=== PATIENT | female | born 1980 | race Caucasian/White ===

== ENCOUNTER 2018-03-05 18:06 | Emergency (ER) | payer BC, OTHER ==
[2018-03-05 18:16] VITALS: BP 124/94
[2018-03-05] MEDS ORDERED: Amoxicillin PO (*) 500 MG CAP PO ONE ×2 (18:26)
--- NOTE | 2018-03-05 18:44 | UC ---
UC Dental HPI - HPI Summary HPI Summary: right upper and left lower molar extracted 02/28/18---now has increased pain and swelling right upper jaw - History of Current Complaint Chief Complaint: UCDentalProblem Stated Complaint: DENTAL COMPLAINT Time Seen by Provider: 03/05/18 18:22 Hx Obtained From: Patient Hx Last Menstrual Period: unknown ?: No Onset/Duration: Sudden Onset Pain Intensity: 3 Pain Scale Used: 0-10 Numeric Aggravating Factor(s): Chewing Alleviating Factor(s): OTC Meds Related History: Previous Dental Care on Same Tooth, Swelling - Allergies/Home Medications Allergies/Adverse Reactions: Allergies Allergy/AdvReac Type Severity Reaction Status Date / Time No Known Allergies Allergy Verified 03/05/18 18:16 PMH/Surg Hx/FS Hx/Imm Hx Previously Healthy: Yes - Surgical History Surgical History: Yes Surgery Procedure, Year, and Place: c section; tubes tied - Family History Known Family History: Positive: Cardiac Disease - [place] - father, Diabetes - mother - Type I DM - Social History Occupation: Employed Full-time Lives: With Family Alcohol Use: Weekly Alcohol Amount: 6-12/WEEK Substance Use Type: None Smoking Status (MU): Light Every Day Tobacco Smoker Amount Used/How Often: 1/2 PPD Review of Systems All Other Systems Reviewed And Are Negative: Yes Constitutional: Positive: Negative Skin: Positive: Negative Eyes: Positive: Negative ENT: Positive: Dental Pain - right posterior upper jaw Respiratory: Positive: Negative Cardiovascular: Positive: Negative Gastrointestinal: Positive: Negative Genitourinary: Positive: Negative Motor: Positive: Negative Neurovascular: Positive: Negative Musculoskeletal: Positive: Negative Neurological: Positive: Negative Psychological: Positive: Negative Is Patient Immunocompromised?: No Physical Exam Triage Information Reviewed: Yes Appearance: Well-Appearing, No Pain Distress, Well-Nourished Vital Signs: Initial Vital Signs Temp 98.2 F 03/05/18 18:10 Pulse 70 03/05/18 18:10 Resp 16 03/05/18 18:10 BP 124/94 03/05/18 18:10 Pulse Ox 100 03/05/18 18:10 Vital Signs Reviewed: Yes Eye Exam: Normal Eyes: Positive: Conjunctiva Clear ENT Exam: Normal ENT: Positive: Normal ENT inspection, Hearing grossly normal, Pharynx normal, Dental tenderness, Uvula midline. Negative: Nasal congestion, Trismus, Muffled voice, Hoarse voice, Sinus tenderness Dental Exam: Other Dental: Positive: Abscess @ - right upper at molar extraction site Neck exam: Normal Neck: Positive: Supple, Nontender, No Lymphadenopathy Respiratory Exam: Normal Respiratory: Positive: Chest non-tender, No respiratory distress, No accessory muscle use Cardiovascular Exam: Normal Cardiovascular: Positive: Pulses Normal, Brisk Capillary Refill Musculoskeletal Exam: Normal Musculoskeletal: Positive: Strength Intact, ROM Intact, No Edema Neurological Exam: Normal Neurological: Positive: Alert, Muscle Tone Normal Psychological Exam: Normal Skin Exam: Normal Dental Complaint Course/Dx - Course Course Of Treatment: continue ibuprofen, add amoxicillin, follow with dentist as needed - Differential Dx/Diagnosis Provider Diagnosis: Abscess, dental Discharge - Sign-Out/Discharge Documenting (check all that apply): Patient Departure All imaging exams completed and their final reports reviewed: No Studies - Discharge Plan Condition: Stable Disposition: HOME Prescriptions: Amoxicillin PO (*) [Amoxicillin 500 MG CAP*] 500 mg PO TID #28 cap Patient Education Materials: Dental Abscess (ED) Referrals: Donald Hancock MD [Primary Care Provider] - If Needed - Billing Disposition and Condition Condition: STABLE Disposition: Home
== END 2018-03-05 18:39 | disposition home or self-care (01) ==
LOC: UCEAST 18:06
DX: K04.7 Periapical abscess without sinus (principal); F17.210 Nicotine dependence, cigarettes, uncomplicated
CPT/HCPCS: 99212; A9270-GY; G0463

== ENCOUNTER 2019-04-03 09:29 | Emergency (ER) | payer OTHER ==
--- OUTSIDE RECORDS SUMMARY | 2019-04-03 09:38 | XMS REPORT | Continuity of Care Document ---
:1980 External Reference #:[id number] Author Name Sukumar Car MD Address [address] [place] [address] Care Team Providers Name Role Phone Donald Hancock MD Care Team Information Window Maker [phone] Problems Active Problems Provider Date Cervicovaginal cytology: Low grade squamous Sukumar Car MD Onset: 2018 intraepithelial lesion Social History Type Date Description Comments Sex Unknown Cigarette Use Current Cigarette Smoker 1/2 Pack Daily ETOH Use Occasionally consumes alcohol Tobacco Use Start: Unknown Patient is a current smoker, smokes every day Recreational Drug Use Denies Drug Use Smoking Status Reviewed: 02/15/19 Patient is a current smoker, smokes every day Exercise Type/Frequency Exercises regularly Seat Belt/Car Seat Always uses seat belt Allergies, Adverse Reactions, Alerts Description No Known Drug Allergies Medications Description No Active Medications Immunizations Description No Information Available Vital Signs Date Vital Result Comment 02/15/2019 1:47pm BP Systolic 112 mmHg BP Diastolic 72 mmHg Height 62.5 inches 5'2.50" Weight 167.00 lb BMI (Body Mass Index) 30.1 kg/m2 2 Parity 2 04/12/2017 1:25pm BP Systolic 118 mmHg BP Diastolic 74 mmHg Height 62.5 inches 5'2.50" Weight 158.00 lb BMI (Body Mass Index) 28.4 kg/m2 Last Menstrual Period [id number] 2 Parity 2 Results Description No Information Available Procedures Date Code Description Status 02/15/2019 75396 Colposcopy W/Loop Electrode Conization Of The Cervix Completed Medical Devices Description No Information Available Encounters Description No Information Available Assessments Date Code Description Provider 02/15/2019 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
--- OUTSIDE RECORDS SUMMARY | 2019-04-03 09:38 | XMS REPORT | Continuity of Care Document ---
:1980 External Reference #:[id number] Author Name Suukmar Car MD Address [address] [place] [address] Care Team Providers Name Role Phone Donald Hancock MD Care Team Information Penal Officer [phone] Problems Active Problems Provider Date Cervicovaginal cytology: Low grade squamous Sukumar Car MD Onset: 2018 intraepithelial lesion Carcinoma in situ of endocervix Sukumar Car MD Onset: 03/13/2019 Social History Type Date Description Comments Sex Unknown Cigarette Use Current Cigarette Smoker 1/2 Pack Daily ETOH Use Occasionally consumes alcohol Tobacco Use Start: Unknown Patient is a current smoker, smokes every day Recreational Drug Use Denies Drug Use Smoking Status Reviewed: 03/13/19 Patient is a current smoker, smokes every day Exercise Type/Frequency Exercises regularly Seat Belt/Car Seat Always uses seat belt Allergies, Adverse Reactions, Alerts Description No Known Drug Allergies Medications Description No Active Medications Immunizations Description No Information Available Vital Signs Date Vital Result Comment 03/13/2019 9:28am BP Systolic 118 mmHg BP Diastolic 78 mmHg Height 62.5 inches 5'2.50" Weight 168.00 lb BMI (Body Mass Index) 30.2 kg/m2 2 Parity 2 02/15/2019 1:47pm BP Systolic 112 mmHg BP Diastolic 72 mmHg Height 62.5 inches 5'2.50" Weight 167.00 lb BMI (Body Mass Index) 30.1 kg/m2 2 Parity 2 Results Test Acquired Date Facility Test Result H/L Range Note Surgical 02/15/2019 [facility] Surgical SEE RESULT 1, 2 [place] [address] Pathology BELOW [phone] [facility] SEE IMAGE 1 [id number] 2 SEE RESULT BELOW Name: MAGDALENA HEATON : [address]: Sukumar Car MD Acct: [id number] Unit: [id number] AGE: 38 Location: [facility] Re02/15/19 SEX: F Status: REG REF SPEC: [id number] DARA: 02/15/19- SUBM DR: Sukumar Car MD REQ: [id number] RECD: 02/16/19-1245 STATUS: SHAWNA PERALES DR: Donald Hancock III, MD _ ORDERED: LEVEL 5 COMMENTS: [id number] FINAL DIAGNOSIS Uterus, cervix, loop electrocautery excision procedure: -- 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 -- The endocervical margin is positive. -- All other margins are clear for significant dysplasia. PRE-OPERATIVE DIAGNOSIS JAYNA 3 GROSS DESCRIPTION The specimen is received in formalin labeled, Cervical Biopsy by LEEP, and consists of a 1.7 x 1.5 cm holder-alcaraz ovoid rubbery focally cauterized soft tissue fragment excised to a maximum depth of 0.6 cm consistent with an unoriented cervical LEEP biopsy. The ectocervix is smooth to wrinkled holder-white with a central 0.9 by up to 0.3 cm os. The endocervix is holder-pink. The specimen is inked as follows: ectocervical margin-black and endocervical margin-blue, serially sectioned in a radial fashion and entirely submitted in four cassettes. Signed by and Reported on: Thu Narayanan MD 02/20/19 1444 END OF REPORT DEPARTMENT OF PATHOLOGY, [address] [place] [address] Miky Blood M.D. 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
--- NOTE | 2019-04-03 09:56 | UC ---
Palpitation/Dysrhythmia HP - HPI Summary HPI Summary: 38-year-old woman comes in with a chief complaint of palpitations and lightheadedness. Patient's had palpitations on and off for quite some time. Last night she was having palpitations and when she had the palpitation she felt like she might pass out. No complaint of chest pain. She has felt short of breath with palpitations before. This morning she was having some palpitations and she did feel short of breath. Patient is a smoker. She is not on control pills. No calf pain or swelling. Last evening she briefly had an occipital headache during palpitations. No headache now. - History of Current Complaint Chief Complaint: UCCardiac Stated Complaint: PALPITATIONS Time Seen by Provider: 04/03/19 09:34 Hx Last Menstrual Period: tubal Pain Intensity: 0 - Allergy/Home Medications Allergies/Adverse Reactions: Allergies Allergy/AdvReac Type Severity Reaction Status Date / Time No Known Allergies Allergy Verified 03/05/18 18:16 PMH/Surg Hx/FS Hx/Imm Hx Previously Healthy: Yes - Surgical History Surgical History: Yes Surgery Procedure, Year, and Place: c section; tubes tied - Family History Known Family History: Positive: Cardiac Disease - [place] - father, Diabetes - mother - Type I DM - Social History Alcohol Use: Weekly Alcohol Amount: 6-12/WEEK Substance Use Type: None Smoking Status (MU): Light Every Day Tobacco Smoker Amount Used/How Often: 1/2 PPD Household Exposure Type: Cigarettes Review of Systems All Other Systems Reviewed And Are Negative: Yes Constitutional: Positive: Other - SEE HPI Skin: Positive: Negative Eyes: Positive: Negative ENT: Positive: Negative Respiratory: Positive: Shortness Of Breath Cardiovascular: Positive: Palpitations, Other - SEE HPI Gastrointestinal: Positive: Negative Motor: Positive: Negative Neurovascular: Positive: Negative Musculoskeletal: Positive: Negative Neurological: Positive: Headache Psychological: Positive: Negative Is Patient Immunocompromised?: No Physical Exam Triage Information Reviewed: Yes Appearance: Well-Appearing, No Pain Distress, Well-Nourished Vital Signs: Initial Vital Signs Temp 98.9 F 04/03/19 09:47 Pulse 86 04/03/19 09:47 Resp 16 04/03/19 09:47 BP 127/91 04/03/19 09:47 Pulse Ox 99 04/03/19 09:47 Vital Signs Reviewed: Yes Eye Exam: Normal Eyes: Positive: Conjunctiva Clear Neck: Positive: Supple Respiratory: Positive: Lungs clear, Normal breath sounds, No respiratory distress Cardiovascular: Positive: RRR Musculoskeletal: Positive: Strength Intact, ROM Intact, No Edema - No calf tenderness Neurological: Positive: Alert, Muscle Tone Normal Psychological: Positive: Age Appropriate Behavior Skin Exam: Normal Diagnostics - EKG Cardiac Rate: NL - AT 09:37 Cardiac Rhythm: Sinus: Normal - 78BPM Ectopy: None ST Segment: Normal Palpitations Course/Dx - Course Course Of Treatment: I discussed the EKG with the patient. At this time the patient's asymptomatic. Because the palpitations were symptomatic last evening and this morning a recommended further evaluation emergency department. Patient prefers to go by POV. - Differential Dx/Diagnosis Provider Diagnosis: Palpitations, Lightheadedness Discharge ED - Sign-Out/Discharge Documenting (check all that apply): Patient Departure All imaging exams completed and their final reports reviewed: No Studies - Discharge Plan Condition: Stable Disposition: HOME-RECOMMEND TO ED Patient Education Materials: Heart Palpitations (ED), Lightheadedness (ED) Referrals: Donald Hancock MD [Primary Care Provider] - Additional Instructions: GO DIRECTLY TO THE EMERGENCY DEPARTMENT FOR FURTHER EVALUATION. - Billing Disposition and Condition Condition: STABLE Disposition: Home-Recommend to ED
[2019-04-03 10:01] VITALS: BP 127/91
== END 2019-04-03 10:04 | disposition home health service (06) ==
LOC: UCEAST 09:29
DX: R00.2 Palpitations (principal); R42 Dizziness and giddiness; R51 Headache; R06.02 Shortness of breath; F17.210 Nicotine dependence, cigarettes, uncomplicated
CPT/HCPCS: 93005; 99212; G0463

== ENCOUNTER 2019-04-03 10:52 | Emergency (ER) | payer OTHER ==
[2019-04-03 11:39] LABS: ABS Lymphocytes 1.1 10^3/ul (1.0-4.8); ABS Monocytes 0.7 10^3/ul (0-0.8); ABS Neutrophils 7.7 10^3/ul (1.5-7.7); Eosinophil % 0.3 %; Hematocrit 46 % (35-47); Hemoglobin 16.4 g/dL (12.0-16.0); Lymphocyte % 11.6 %; Mean Corpuscular HGB Conc 36 g/dL (31-36); Mean Corpuscular Hemoglobin 35 pg (27-31); Mean Corpuscular Volume 99 fL (80-97); Platelet Count 281 10^3/uL (150-450); Red Blood Count 4.64 10^6 /uL (3.70-4.87); Red Cell Distribution Width 13 % (10-15); White Blood Count 9.6 10^3/uL (3.5-10.8)
[2019-04-03 11:56] LABS: Albumin 4.3 g/dL (3.2-5.2); Albumin/Globulin Ratio 1.4 (1-3); BUN/Creatinine Ratio 8.8 (8-20); EGFR African American 98.2 (>60); EGFR Non-African American 81.2 (>60); Globulin 3.1 g/dL (2-4); Magnesium 2.1 mg/dL (1.9-2.7); Potassium 3.7 mmol/L (3.5-5.0); Total Bilirubin 0.6 mg/dL (0.2-1.0); Total Protein 7.4 g/dL (6.4-8.9)
[2019-04-03 12:12] LABS: TSH (Thyroid Stimulating Horm) 2.59 mcIU/mL (0.34-5.60)
--- NOTE | 2019-04-03 12:15 | ED ---
Palpitations / Dysrhythmia - HPI Summary HPI Summary: This patient is a 38 year old female presenting to [facility] with a chief complaint of palpitations since last night. She states she felt them in bed and felt light headed and anxious. - History of Current Complaint Chief Complaint: EDDysrhythmPalp Time Seen by Provider: 04/03/19 11:55 Hx Obtained From: Patient - Allergy/Home Medications Allergies/Adverse Reactions: Allergies Allergy/AdvReac Type Severity Reaction Status Date / Time No Known Allergies Allergy Verified 03/05/18 18:16 PMH/Surg Hx/FS Hx/Imm Hx Sensory History: Denies: Hx Contacts or Glasses, Hx Hearing Aid Opthamlomology History: Denies: Hx Contacts or Glasses - Surgical History Surgery Procedure, Year, and Place: c section; tubes tied Hx Anesthesia Reactions: No Infectious Disease History: No Infectious Disease History: Denies: History Other Infectious Disease, Traveled Outside the in Last 30 Days - Family History Known Family History: Positive: Cardiac Disease - [place] - father, Diabetes - mother - Type I DM - Social History Alcohol Use: Weekly Alcohol Amount: 6-12/WEEK Substance Use Type: Reports: None Smoking Status (MU): Light Every Day Tobacco Smoker Amount Used/How Often: 1/2 PPD Review of Systems Positive: Palpitations Neurological: Other - Light-headed Positive: Anxious All Other Systems Reviewed And Are Negative: Yes Physical Exam Triage Information Reviewed: Yes Vital Signs On Initial Exam: Initial Vitals Temp Pulse Resp BP Pulse Ox 98.8 F 106 16 160/107 98 04/03/19 11:06 04/03/19 11:06 04/03/19 11:06 04/03/19 11:06 04/03/19 11:06 Vital Signs Reviewed: Yes Procedures - Sedation Patient Received Moderate/Deep Sedation with Procedure: No Diagnostics - Vital Signs Vital Signs Temp Pulse Resp BP Pulse Ox 04/03/19 11:06 98.8 F 106 16 160/107 98 - Laboratory Lab Results: Lab Results 04/03/19 04/03/19 04/03/19 Range/Units 11:22 11:22 11:22 WBC 9.6 (3.5-10.8) 10^3/uL RBC 4.64 (3.70-4.87) 10^6 /uL Hgb 16.4 H (12.0-16.0) g/dL Hct 46 (35-47) % MCV 99 H (80-97) fL MCH 35 H (27-31) pg MCHC 36 (31-36) g/dL RDW 13 (10-15) % Plt Count 281 (150-450) 10^3/uL MPV 8.0 (7.4-10.4) fL Neut % (Auto) 80.2 % Lymph % (Auto) 11.6 % [place] % (Auto) 7.4 % Eos % (Auto) 0.3 % Baso % (Auto) 0.5 % Absolute Neuts (auto) 7.7 (1.5-7.7) 10^3/ul Absolute Lymphs (auto) 1.1 (1.0-4.8) 10^3/ul Absolute Monos (auto) 0.7 (0-0.8) 10^3/ul Absolute Eos (auto) 0.0 (0-0.6) 10^3/ul Absolute Basos (auto) 0.0 (0-0.2) 10^3/ul Absolute Nucleated RBC 0.0 10^3/ul Nucleated RBC % 0.0 Sodium 136 (135-145) mmol/L Potassium 3.7 (3.5-5.0) mmol/L Chloride 103 (101-111) mmol/L Carbon Dioxide 25 (22-32) mmol/L Anion Gap 8 (2-11) mmol/L BUN 7 (6-24) mg/dL Creatinine 0.80 (0.51-0.95) mg/dL Est GFR ( Amer) 98.2 (>60) Est GFR (Non-Af Amer) 81.2 (>60) BUN/Creatinine Ratio 8.8 (8-20) Glucose 137 H (70-100) mg/dL Lactic Acid 1.1 (0.5-2.0) mmol/L Calcium 9.0 (8.6-10.3) mg/dL Magnesium 2.1 (1.9-2.7) mg/dL Total Bilirubin 0.60 (0.2-1.0) mg/dL AST 20 (13-39) U/L ALT 16 (7-52) U/L Alkaline Phosphatase 74 (34-104) U/L Troponin I 0.00 (<0.03) ng/mL Total Protein 7.4 (6.4-8.9) g/dL Albumin 4.3 (3.2-5.2) g/dL Globulin 3.1 (2-4) g/dL Albumin/Globulin Ratio 1.4 (1-3) TSH Pending Result Diagrams: 04/03/19 11:22 04/03/19 11:22 Lab Statement: Any lab studies that have been ordered have been reviewed, and results considered in the medical decision making process. Discharge ED - Discharge Plan Referrals: Donald Hancock MD [Primary Care Provider] - - Attestation Statements Document Initiated by Scribe: Yes Documenting Scribe: Zack Winslow Provider For Whom Scribe is Documenting (Include Credential): Flory Casper MD Scribe Attestation: Zack Boles, scribed for Flory Casper MD on 04/03/19 at 1215.
[2019-04-03 14:09] VITALS: BP 124/88
--- NOTE | 2019-04-04 06:05 | ED ---
Palpitations / Dysrhythmia - HPI Summary HPI Summary: Pt is a 38yo F with no significant PMH presenting to the ED with feelings of palpitations last night. She states they were bad last night, but she has them intermittently and has for several months. Sometimes just once a week, sometimes more. Denies any chest pain. Stats last night she felt headed is a swimmy feeling. She stated she felt somewhat anxious. No history of anxiety. She did also state she had a sudden onset head pain last night in the right back of the head, that started immediately before the palpitations. This dissipated and is not better currently. His any recent illness, fevers, sweats , chills. Denies any rhinorrhea, cough, congestion. No modifying factors. No symptoms currently. Was seen at . Sent here for further evaluation. - History of Current Complaint Chief Complaint: EDDysrhythmPalp Time Seen by Provider: 04/03/19 11:55 Hx Obtained From: Patient Onset/Duration: Sudden Onset Timing: Constant Severity Initially: Mild Severity Currently: None Character: Fast Aggravating: Rest Alleviating: Nothing Associated Signs & Symptoms: Lightheadedness, Dizzy - Risk Factors Cardiac: Family History Pulmonary Embolism: Negative Atrial Fibrillation: Negative - Allergy/Home Medications Allergies/Adverse Reactions: Allergies Allergy/AdvReac Type Severity Reaction Status Date / Time No Known Allergies Allergy Verified 03/05/18 18:16 PMH/Surg Hx/FS Hx/Imm Hx Previously Healthy: Yes Sensory History: Denies: Hx Contacts or Glasses, Hx Hearing Aid Opthamlomology History: Denies: Hx Contacts or Glasses - Surgical History Surgery Procedure, Year, and Place: c section; tubes tied Hx Anesthesia Reactions: No - Immunization History Hx Pertussis Vaccination: No Immunizations Up to Date: Yes Infectious Disease History: No Infectious Disease History: Denies: History Other Infectious Disease, Traveled Outside the [place] in Last 30 Days - Family History Known Family History: Positive: Cardiac Disease - [place] - father, Diabetes - mother - Type I DM - Social History Occupation: Employed Full-time Lives: With Family Alcohol Use: Occasionally Alcohol Amount: 6-12/WEEK Hx Substance Use: No Substance Use Type: Reports: None Hx Tobacco Use: Yes Smoking Status (MU): Light Every Day Tobacco Smoker Amount Used/How Often: 1/2 PPD Review of Systems Negative: Fever, Chills, Fatigue, Skin Diaphoresis Negative: Blurred Vision, Diplopia Positive: Palpitations. Negative: Chest Pain Negative: Shortness Of Breath, Cough Neurological: Other - Light-headed Positive: Anxious All Other Systems Reviewed And Are Negative: Yes Physical Exam Triage Information Reviewed: Yes Vital Signs On Initial Exam: Initial Vitals Temp Pulse Resp BP Pulse Ox 98.8 F 106 16 160/107 98 04/03/19 11:06 04/03/19 11:06 04/03/19 11:06 04/03/19 11:06 04/03/19 11:06 Vital Signs Reviewed: Yes Head/Face: Positive: Normal Head/Face Inspection Eyes: Positive: EOMI, LUZ, Conjunctiva Clear Neck: Positive: Supple, No Lymphadenopathy Respiratory/Lung Sounds: Positive: Clear to Auscultation, Breath Sounds Present Cardiovascular: Positive: RRR, Pulses are Symmetrical in both Upper and Lower Extremities Musculoskeletal: Positive: Normal, Strength/ROM Intact Neurological: Positive: Speech Normal Psychiatric: Positive: Normal, Affect/Mood Appropriate AVPU Assessment: Alert Procedures - Sedation Patient Received Moderate/Deep Sedation with Procedure: No Diagnostics - Vital Signs Vital Signs Temp Pulse Resp BP Pulse Ox 04/03/19 14:08 98.8 F 84 18 124/88 100 04/03/19 12:31 98.7 F 9 18 142/102 97 04/03/19 11:06 98.8 F 106 16 160/107 98 - Laboratory Lab Results: Lab Results 04/03/19 04/03/19 04/03/19 Range/Units 11:22 11:22 11:22 WBC 9.6 (3.5-10.8) 10^3/uL RBC 4.64 (3.70-4.87) 10^6 /uL Hgb 16.4 H (12.0-16.0) g/dL Hct 46 (35-47) % MCV 99 H (80-97) fL MCH 35 H (27-31) pg MCHC 36 (31-36) g/dL RDW 13 (10-15) % Plt Count 281 (150-450) 10^3/uL MPV 8.0 (7.4-10.4) fL Neut % (Auto) 80.2 % Lymph % (Auto) 11.6 % [place] % (Auto) 7.4 % Eos % (Auto) 0.3 % Baso % (Auto) 0.5 % Absolute Neuts (auto) 7.7 (1.5-7.7) 10^3/ul Absolute Lymphs (auto) 1.1 (1.0-4.8) 10^3/ul Absolute Monos (auto) 0.7 (0-0.8) 10^3/ul Absolute Eos (auto) 0.0 (0-0.6) 10^3/ul Absolute Basos (auto) 0.0 (0-0.2) 10^3/ul Absolute Nucleated RBC 0.0 10^3/ul Nucleated RBC % 0.0 Sodium 136 (135-145) mmol/L Potassium 3.7 (3.5-5.0) mmol/L Chloride 103 (101-111) mmol/L Carbon Dioxide 25 (22-32) mmol/L Anion Gap 8 (2-11) mmol/L BUN 7 (6-24) mg/dL Creatinine 0.80 (0.51-0.95) mg/dL Est GFR ( Amer) 98.2 (>60) Est GFR (Non-Af Amer) 81.2 (>60) BUN/Creatinine Ratio 8.8 (8-20) Glucose 137 H (70-100) mg/dL Lactic Acid 1.1 (0.5-2.0) mmol/L Calcium 9.0 (8.6-10.3) mg/dL Magnesium 2.1 (1.9-2.7) mg/dL Total Bilirubin 0.60 (0.2-1.0) mg/dL AST 20 (13-39) U/L ALT 16 (7-52) U/L Alkaline Phosphatase 74 (34-104) U/L Troponin I 0.00 (<0.03) ng/mL Total Protein 7.4 (6.4-8.9) g/dL Albumin 4.3 (3.2-5.2) g/dL Globulin 3.1 (2-4) g/dL Albumin/Globulin Ratio 1.4 (1-3) TSH Pending Result Diagrams: 04/03/19 11:22 04/03/19 11:22 Lab Statement: Any lab studies that have been ordered have been reviewed, and results considered in the medical decision making process. Course/Dx - Course Course Of Treatment: During his course treatment, the patient is evaluated for feelings of chest palpitations last night. She denies any chest pain or shortness of breath. She did state she felt anxious. Symptoms began immediately after having head pain and feeling "swimmy" in the middle of the night. She states she has had these symptoms of palpitations before, however has never had the headache or "swimmy" feeling. She denies any chest pain or pressure. No cardiac history. Significant positive family history. Father [place] before 50. Pt has no hx of cardiac events, htn or cardiac pathology. + family hx. vital signs are stable. Labs obtained including an initial troponin of 0.00. Heart score low. = Risk of MACE of 0.9-1.7%. Patient is stable at this time please discharged with close PCP follow-up. - Diagnoses Differential Diagnosis/HQI/PQRI: Positive: Panic Disorder, Other - anxiety, WEST, dehydration Provider Diagnoses: Palpitations Discharge ED - Sign-Out/Discharge Documenting (check all that apply): Patient Departure - Discharge Plan Condition: Stable Disposition: HOME Patient Education Materials: Heart Palpitations (ED) Referrals: Donald Hancock MD [Primary Care Provider] - Additional Instructions: Please follow up with PCP - Billing Disposition and Condition Condition: STABLE Disposition: Home
== END 2019-04-03 14:08 | disposition home or self-care (01) ==
LOC: ED 10:52
DX: R00.2 Palpitations (principal); R42 Dizziness and giddiness; Z82.49 Family history of ischemic heart disease and other diseases of the circulatory system; Z83.3 Family history of diabetes mellitus; F17.200 Nicotine dependence, unspecified, uncomplicated
CPT/HCPCS: 36415; 80053; 83605; 83735; 84443; 84484; 85025; 93005; 99282